=== PATIENT | male | born 1975 | race Caucasian/White ===

== ENCOUNTER 2016-09-18 18:20 | Emergency (ER) | payer OTHER ==
[~2016-09-18] VITALS: Ht 170.2 cm; Wt 95.3 kg
[~2016-09-18 18:20] MED LIST: ASPIR-LOW81 MG PO; CARDIZEM CD180 MG PO
[2016-09-18] MEDS ORDERED: ZYRTEC ALLERGY10 MG PO (18:35)
[2016-09-18] MEDS ORDERED: LISINOPRIL10 MG PO (18:35)
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
[2016-09-18 20:29] VITALS: BP 128/87
--- NOTE | 2016-09-19 05:31 | RADIOLOGY REPORT PS360 ---
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 No lytic or blastic change. There is normal mineralization.. The joint spaces are well-preserved. No significant degenerative/arthritic changes. No erosive changes evident.. IMPRESSION: Negative wrist
== END 2016-09-18 20:29 | disposition home or self-care (01) ==
LOC: UTC 18:20
DX: S63.501A Unspecified sprain of right wrist, initial encounter (principal); Y92.69 Other specified industrial and construction area as the place of occurrence of the external cause; Y99.0 Civilian activity done for income or pay; V69.3XXA Occupant (driver) (passenger) of heavy transport vehicle injured in unspecified nontraffic accident, initial encounter